=== PATIENT | female | born 1950 ===

== ENCOUNTER 2024-01-01 13:00 | Outpatient (CLI) | payer BC, MEDICARE, SELFPAY ==
--- NOTE | ~2024-01-01 | MR_ITS ---
EXAMINATION: MR lumbar spine wo con DATE: 01/01/2024 14:15 INDICATION: Bilateral sciatica. Sacral insufficiency fracture with routine healing. TECHNIQUE: Magnetic resonance imaging (MRI) of the lumbar spine was performed without intravenous con trast. Sequences included sagittal T2-weighted FSE, sagittal T2-weighted FS FSE, sagittal T1-weighted FSE, and axial T2-weighted FSE. COMPARISON: None FINDINGS: There is 32 degrees levoscoliosis of lumbar spine. There is a chronic compression fracture of L2 with changes of vertebroplasty. There is 3 mm anterolisthesis of L3 on L4. There are insufficie ncy fractures involving the bilateral sacral ala and S2 body with low signal fracture lines and edema -like marrow signal intensity. There is severely decreased disc height at L1-L2, L2-L3, and L3-L4 and moderately decreased disc height at L4-L5 and L5-S1. The distal spinal cord signal intensity is norm al. The conus medullaris is at T12-L1. The following disc levels are specifically discussed: L1-L2: The disc is bulging and has an annular fissure. There is severe bilateral facet joint osteoart hritis. There is mild bilateral neural foraminal stenosis. There is mild central canal stenosis. L2-L3: The disc is bulging and has an annular fissure. There is severe bilateral facet joint osteoart hritis. There is mild bilateral neural foraminal stenosis. There is mild central canal stenosis. L3-L4: The disc is bulging and has an annular fissure. There is severe bilateral facet joint osteoart hritis. There is mild bilateral neural foraminal stenosis. There is mild central canal stenosis. L4-L5: The disc is bulging. There is severe bilateral facet joint osteoarthritis. There is mild bilat eral neural foraminal stenosis. There is mild central canal stenosis. L5-S1: The disc is bulging. There is severe bilateral facet joint osteoarthritis. There is mild bilat eral neural foraminal stenosis. There is mild central canal stenosis. IMPRESSION: 1. Sacral insufficiency fractures. 2. Severe lumbar spondylosis. 3. Lumbar levoscoliosis. Reviewed, dictated and finalized at location A.
--- NOTE | ~2024-01-01 | MR_ITS ---
EXAMINATION: MR thoracic spine wo con DATE: 01/01/2024 13:57 INDICATION: Bilateral sciatica. TECHNIQUE: Magnetic resonance imaging (MRI) of the thoracic spine was performed without intravenous c ontrast. COMPARISON: None FINDINGS: There is 18 degrees dextroscoliosis of thoracic spine. There is a chronic compression fract ure of L2 with changes of vertebroplasty. There is mildly decreased disc height at many levels. There is moderately decreased disc height at T4-T5 and T5-T6 and T8-T9. At T4-T5, there is a left central extrusion with mild central canal stenosis. At T5-T6, there is a left central extrusion with mild ryann tral canal stenosis. At T9-T10, there is a central extrusion with mild central canal stenosis. At T10 -T11, there is a central extrusion with mild central canal stenosis. At T11-T12, there is a central e xtrusion with mild central canal stenosis. At T12-L1, there is a central protrusion with mild central canal stenosis. There is multilevel facet joint osteoarthritis, severe at several levels. There is m ultilevel mild neural foraminal stenosis on either side. The spinal cord signal intensity is normal. The conus medullaris is at T12. IMPRESSION: 1. Moderate thoracic spondylosis. 2. Thoracic dextroscoliosis. Reviewed, dictated and finalized at location A.
--- NOTE | ~2024-01-01 | MR_ITS ---
EXAMINATION: MR pelvis wo con DATE: 01/01/2024 14:27 INDICATION: Sacral insufficiency fracture with routine healing. TECHNIQUE: Magnetic resonance imaging (MRI) of the pelvis was performed without intravenous contrast. COMPARISON: None. FINDINGS: There is lumbar levoscoliosis and severe spondylosis. There are fractures of the bilateral sacral ala and S2 body with low signal fracture lines and surrounding edema-like marrow signal intensity. There are fractures of the bilateral superior and inferior pubic rami and parasymphyseal pubis. 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 There are partial tears of the hamstring origins bilaterally. The kareem opsoas tendons are normal. There is mild right and moderate left gluteus minimus tendinopathy. There is mild bilateral trochanter bursitis. IMPRESSION: 1. Insufficiency fractures involving the sacrum and bilateral superior and inferior pubic rami and pa rasymphyseal pubis. Reviewed, dictated and finalized at location A. IMPRESSION: 1. Insufficiency fractures involving the sacrum and bilateral superior and infe rior pubic rami and parasymphyseal pubis.
== END 2024-01-01 13:01 | disposition home or self-care (01) ==
PROVIDERS: PCP Family Medicine
DX: S32.591D Other specified fracture of right pubis, subsequent encounter for fracture with routine healing (principal); S32.592D Other specified fracture of left pubis, subsequent encounter for fracture with routine healing; X58.XXXD Exposure to other specified factors, subsequent encounter; M47.896 Other spondylosis, lumbar region
CPT/HCPCS: 72146; 72148; 72195